=== PATIENT | female | born 1950 | race Caucasian/White ===

== ENCOUNTER → 2017-02-25 | Outpatient (CLI) | payer OTHER ==
[~2017-02-25] MED LIST: AMLODIPINE BESY10 MG; HCTZ/TRIAMTEREN1 TA1 PO; HYDROCHLOROTHIA25 MG; HYDROCHLOROTHIA25 MG PO; INDOCIN25 MG PO; KEFLEX500 MG PO; LOSARTAN POTASS25 M1; LOSARTAN POTASS25 M1 PO; LOVASTATIN20 MG; MOTRIN800 MG PO; NORFLEX100 MG PO; NORVASC2.5 MG PO; PAROXETINE40 MG; PAXIL40 MG PO; PERCOCET 325 MG1 TA2 PO; POTASSIUM CHLORIDE; POTASSIUM20 MEQ PO; PREDNICOT20 MG PO; TRAMADOL HCL; VENTOLIN INHALER; VICODIN ES 7501 TAB PO; ZITHROMAX Z PA250 MG PO
== END | disposition home or self-care (01) ==
LOC: RAD 16:09
DX: R91.1 Solitary pulmonary nodule (principal); R04.2 Hemoptysis

== ENCOUNTER → 2017-03-04 | Outpatient (CLI) | payer OTHER ==
[2017-03-04 13:48] LABS: EST GLOM FILT AFRICAN AMERICAN > 60 ml/min
== END | disposition home or self-care (01) ==
LOC: LAB 13:22 → CT 14:00
PROVIDERS: Nurse Practitioner Family
DX: R91.8 Other nonspecific abnormal finding of lung field (principal); J44.9 Chronic obstructive pulmonary disease, unspecified

== ENCOUNTER → 2017-03-24 | Outpatient (CLI) | payer OTHER ==
[2017-03-25 08:13] LABS: RHEUMATOID ARTHRITIS FACTOR <10.0 IU/mL (0.0-13.9)
[2017-03-25 09:07] LABS: IMMUNOGLOBULIN IgE 002170 135 IU/mL (0-100)
[2017-03-25 16:10] LABS: ANGIOTENSIN-CONVERTING ENZYME 28 U/L (14-82)
[2017-03-26 00:08] LABS: IGG SUBCLASS 1 1060 mg/dL (248-810); IGG SUBCLASS 2 320 mg/dL (130-555); IGG SUBCLASS 3 61 mg/dL (15-102); IGG SUBCLASS 4 27 mg/dL (2-96)
[2017-03-26 22:04] LABS: BLASTOMYCES ANTIBODY 164293 Negative (Neg:<1:1)
== END | disposition home or self-care (01) ==
LOC: LAB 14:15
PROVIDERS: Internal Medicine Critical Care Medicine
DX: J84.9 Interstitial pulmonary disease, unspecified (principal)

== ENCOUNTER → 2017-03-24 | Day surgery (SDC) | payer OTHER ==
[~2017-03-24] VITALS: Ht 154.9 cm; Wt 88.5 kg
--- NOTE | ~2017-03-24 | PROC NOTE ---
[place], [place] PROCEDURE NOTE [id number] UN[facility] #: [id number] ROOM: DOCTOR: JOE ZEPEDA MD,PK BIRTHDATE: [birth year] DOS: 03/24/2017 PROCEDURE: Bronchoscopy. PREOPERATIVE DIAGNOSIS: Cavitary mass lesion of the left upper lobe. POSTOPERATIVE DIAGNOSIS: Cavitary mass lesion of the left upper lobe. PROCEDURE DESCRIPTION: Informed consent obtained from the patient. She was brought to the OR and placed in the supine position. Conscious sedation administered by the Anesthesia Department. After achieving appropriate sedation, airway introduced into the mouth. Bronchoscope advanced into the airway, into laryngeal area. Epiglottis and vocal cords were seen. Vocal cords were moving symmetrically with movements. Bronchoscope was advanced into the tracheal lumen. The tracheal lumen was seen. Minimal secretion present in the tracheal lumen. Right upper, right middle, right lower, left upper, lingular lower lobe bronchi were all examined. There were no endobronchial obstructive lesions noted. Transbronchial biopsy was done confirming the left upper lobe mass with the help of fluoroscopy without any complication. The procedure was tolerated by the patient without any difficulty. Postoperative findings were discussed with the patient briefly in the recovery room once the patient noted some improvement to the effects of sedation. The findings were also discussed with the patient's daughter as well. She will be seen in the office for followup visit to determine the etiology of the problem and to discuss the further findings of the path report and cultures. PK DIAZ MD CM:PROCNOTE:PROCEDURE NOTE [id number] PK ZEPEDA MD
[2017-03-24 08:48] VITALS: BP 130/70
[2017-03-24 09:20] VITALS: BP 122/65
[2017-03-24 09:31] VITALS: BP 98/71
[2017-03-24 09:50] VITALS: BP 126/76
[2017-03-25 16:10] LABS: ACID FAST SPEC PROCESSING Concentration (.)
== END | disposition home or self-care (01) ==
LOC: SDC 03-20 08:45
PROVIDERS: Internal Medicine Critical Care Medicine
DX: C34.12 Malignant neoplasm of upper lobe, left bronchus or lung (principal); J45.909 Unspecified asthma, uncomplicated; J44.9 Chronic obstructive pulmonary disease, unspecified; Z98.51 Tubal ligation status; Z90.710 Acquired absence of both cervix and uterus; Z98.890 Other specified postprocedural states; Z87.891 Personal history of nicotine dependence; E66.9 Obesity, unspecified; E78.00 Pure hypercholesterolemia, unspecified; I10 Essential (primary) hypertension; F32.9 Major depressive disorder, single episode, unspecified; Z79.899 Other long term (current) drug therapy

== ENCOUNTER → 2017-05-27 | Outpatient (CLI) | payer OTHER | END | disposition home or self-care (01) | LOC: RAD 12:00 | DX: Z01.818 Encounter for other preprocedural examination (principal); C34.12 Malignant neoplasm of upper lobe, left bronchus or lung ==

== ENCOUNTER 2018-10-09 15:05 | Inpatient (IN) | payer OTHER ==
[~2018-10-09] VITALS: Ht 154.9 cm; Wt 93.2 kg
--- NOTE | ~2018-10-09 | CON ---
[place], [place] REPORT OF CONSULTATION NAME: ELVIS REID UNIT #: [id number] ROOM: [facility] DOCTOR: JOE ZEPEDA MD,PK BIRTHDATE: [birth year] DOS: The patient was asked for consultation in this hospitalization, but transferred to another facility prior to my assessment. PK DIAZ MD CM:CONSTR:REPORT OF CONSULTATION 1155 10/25/18 2347 interface
--- NOTE | ~2018-10-09 | CON ---
[place], [place] REPORT OF CONSULTATION NAME: ELVIS REID UNIT #: [id number] ROOM: 405 DOCTOR: BREANNA HOLLIDAY MD BIRTHDATE: [birth year] DOS: 10/11/2018 HISTORY OF PRESENT ILLNESS: A 68-year-old patient who presented with chief complaint of abdominal pain, recurrent nausea and vomiting. She had to be process to Emergency Room because of the symptomatology was presented and NG tube was tried in right and left naris was unable to get the tube in. White blood was 11.8. Differential normal. Comprehensive metabolic panel, electrolyte balance except at that time 3.2, potassium was replaced. CT scan of the abdomen was done. Suspect enteritis of the distal ileum. CT scan repeat was recommended. Small amount of fluid in the abdomen, hepatic steatosis, gallbladder sludge, diverticulosis without diverticulitis. CBC differential corrected INR was 1.1. Basic metabolic panel was reassessed. Potassium periodically replaced. Urine less than 100,000 bacteria. H and H remained stable. PAST MEDICAL HISTORY: Associated with obesity, COPD, recently has stopped smoking, chronic renal insufficiency, anxiety, diverticulosis, and lung ca. PAST SURGICAL HISTORY: Left lobectomy, vaginal hysterectomy, and previous back surgery disk. SOCIAL HISTORY: Smoker in the recent past and marijuana use. FAMILY HISTORY: Noncontributory. ALLERGIES: SULFA, QUINOLONES AND CIPROFLOXACIN. MEDICATIONS: List has been reviewed. REVIEW OF SYSTEMS: HEENT: Denies double vision, blurred vision. RESPIRATORY: Admits to shortness of breath. CARDIOVASCULAR: Denies chest pain. DIGESTIVE SYSTEM: Recurrent nausea, vomiting. She had a large BM and liquid stool today. PHYSICAL EXAMINATION: VITAL SIGNS: Stable. HEENT: Head normocephalic, nontraumatic. Mouth and buccal mucosa benign. NECK: Supple, no thyromegaly, no cervical lymphadenopathy. CHEST: Symmetric anatomy, decreased air entry, COPD pattern. HEART: Normal sinus rhythm, no gallop, no murmur. ABDOMEN: Obese, large bowel sounds present. They are hyperdynamic, tympanitic bowel sounds signifying at least partial obstruction. Rebound tenderness was noticed. EXTREMITIES: No cyanosis, no pedal edema. NEUROLOGIC: Fully alert, oriented to time, place, person. IMPRESSION: Acute abdomen in the presentation, ruling out obstruction of variety of etiologies obesity, steatosis of the liver. [place], [place] REPORT OF CONSULTATION NAME: ELVIS REID UNIT #: [id number] ROOM: 405 DOCTOR: MIYA MUNOZ,BREANNA BIRTHDATE: [birth year] OTHER ADJUNCTIVE DIAGNOSES: As outlined above in past medical and surgical history. PLAN AND DISCUSSION: Strongly recommend to proceed with CT scan of the abdomen with contrast to define the level of obstruction and if so, she needs further intervention to release the pathology. Work in progress. The patient cannot tolerate clear liquid. I have recommended for her to stay n.p.o. until CT scan done in the next several hours, hopefully. BREANNA HOLLIDAY MD CM:CONSTR:REPORT OF CONSULTATION 1944 10/12/18 0412 interface
--- NOTE | ~2018-10-09 | O ---
[place], [place] OPERATIVE NOTE NAME: ELVIS REID [facility] #: [id number] UNIT #: [id number] ROOM: [facility]- DOCTOR: TOY [facility] BIRTHDATE: [birth year] DOS: 10/15/2018 GASTROENDOSCOPIC REPORT HISTORY OF PRESENT ILLNESS: The patient has presented with obstructive symptomatology, has been several days in the hospital with abdominal severe pain. NG tube has been placed for the past few days and continues with her abdominal pain, on antibiotics. CT scan suggestive of bowel obstruction and I have been asked to perform a colonoscopy on the patient and endoscopic evaluation due to the concern possible about distal small-bowel obstruction. The CT scan without contrast was obtained and after administration of oral contrast, there is small bowel thickening. Findings again suggestive of enteritis. Given persistent small bowel dilation to the level of the ileum, partial intermittent distal small bowel is obstruction is suspected, recommend close clinical reevaluation. Gallbladder distention and sludge. PROCEDURE: Today's is panendoscopy and colonoscopy. PREMEDICATION: Propofol and intubation. SCOPE: Olympus forward-viewing gastroscope Q10 video. REPORT: After putting the patient in left lateral position and application of lubricant to the scope, the scope was introduced. Thereafter, under direct visualization, advanced through the length of esophagus without difficulty. Distal esophageal ulcers secondary to reflux was noticed. Gastric pouch expresses multiple linear ulcerations. These are most likely induced, not only because of bile reflux gastritis seen addition to the presence of NG tube in place. Biopsy from margin of 1 was obtained. Photographic series obtained. Duodenal bulb and second part and third part intubated. There is leaking of the bilious matter at the third part of the duodenum signifying the bile cannot easily passed through and there must be obstructive phenomenon beyond this level. At this stage, scope was withdrawn. The patient extubated, tolerated the procedure well. IMPRESSION: Distal esophageal ulcer secondary to reflux, multiple linear ulcerations in gastric pouch. In the duodenum, suspecting distal small-bowel obstruction due to the large volume of bilious matter in the duodenum. PLAN AND DISCUSSION: I am going to proceed with colonoscopy. GASTROENDOSCOPIC REPORT PROCEDURE: Today's procedure part of investigation is colonoscopy plus terminal ileum biopsy. PREMEDICATION: Propofol. SCOPE: Olympus forward-viewing colonoscope 10L video. [place], [place] OPERATIVE NOTE NAME: ELVIS REID UNIT #: [id number] ROOM: [facility] DOCTOR: MIYA MUNOZ,BREANNA BIRTHDATE: [birth year] REPORT: After putting the patient in left lateral position and application of lubricant to rectal pouch, scope was introduced. Thereafter, under direct visualization, I advanced through the length of colon to the level of terminal ileum. Ileocecal valve is prolapsed as big as moderate size pecan and quite edematous it is difficult to negotiate the colonoscope into the diameter existing. Therefore, partially was introduced and biopsy was obtained. Tortuosity of sigmoid colon was noticed, multi-colonic polyp was identified. Neither one was removed due to the concentration to the other issues, i.e., obstruction. The patient air was suctioned out, extubated, tolerated the procedure well. IMPRESSION: Diverticulosis, multiple colonic polyps that was not removed, stenotic ileocecal valve, status post biopsy in addition to edema, suspecting obstruction or pathology at this level. PLAN AND DISCUSSION: This patient has been awaiting around for observation and weekend is arriving and I am not comfortable to leave her status quo, may need to be transferred out for exploratory surgery. Thank you very much indeed. BREANNA HOLLIDAY MD CM:OPRECORD:OPERATIVE NOTE [id number] BREANNA HOLLIDAY MD 10/27/18 0739 interface
--- NOTE | ~2018-10-09 | PR ---
[place], [place] PROGRESS NOTE NAME: ELVIS REID [facility] #: [id number] UNIT #: [id number] ROOM: 405 DOCTOR: MIYA MUNOZTOYRIO RICOJUAN CARLOS BIRTHDATE: [birth year] DOS: 10/13/2018 HISTORY OF PRESENT ILLNESS: The patient has presented with abdominal pain and symptomatology of bowel obstruction. She has had multiple CT scans done, the latest one being a repeat of CT with contrast and essentially same as 10/09/2018 and some bowel thickening and possibility of small bowel dilation, particularly towards the ileum, possibility of partial obstruction, gallbladder distention, sludge, and tiny nephrolithiasis, has been commented about, but no definitive obstruction noticed. However, the patient is clinically having small-bowel obstruction, especially 2 days ago she was having rebound tenderness and acute abdomen on presentation. Today less rebound effect; however, bowel sounds are high pitched and hyperactive and as if the process of hyperactivity secondary to enteritis. The etiology of which has been not clear yet in the presence of negative ova and parasite and in the presence of stool cultures been nonremarkable. CBC today, white blood cell dropped to 5.7 after she received one dose of Rocephin and it was 16 yesterday and she has been hypokalemic at 3.3 today after she has received multiple doses K-riders yesterday. We are going to supplement again with 20 mg K-riders x 2. She has been keeping her NG tube, a little bit uncomfortable; however, since it has helped her nausea, vomiting, intermittent suction continues through the NG tube. REVIEW OF SYSTEMS: HEENT: Denies double vision, blurred vision. RESPIRATORY: Denies acute shortness of breath. CARDIOVASCULAR: Denies acute chest pain. DIGESTIVE SYSTEM: The patient continues with abdominal pain and nausea. An NG tube support. PHYSICAL EXAMINATION: VITAL SIGNS: Appear to be stable. HEENT: Normocephalic, nontraumatic NG tube in place, right naris and Mouth and buccal mucosa benign. NECK: Supple, no thyromegaly, no cervical lymphadenopathy. CHEST: Symmetric anatomy, decreased air entry in general. No wheeze, no rhonchi. HEART: Normal sinus rhythm, no gallop, no murmur. ABDOMEN: Obese, large, soft. No hepato-organomegaly. Bowel sounds present, still cleaner on tapping. However, much less. Bowel sounds hyperactive. EXTREMITIES: No cyanosis, no pedal edema. NEUROLOGIC: Alert, oriented to time, place, and person. IMPRESSION: Abdominal pain and distention, etiology of enteritis on radiologic finding has not been explained yet. However, she was having leukocytosis. She received one dose of Rocephin and white blood cell dropped to 5+ and NG tube in place for possible obstruction that I am comfortable, is not resolved yet. I will keep this patient on metronidazole 500 mg q. 8 hours due to the chronicity of symptomatology and persistence of unexplained etiology of bowel partial obstruction. Other adjunctive diagnoses, morbid obesity, chronic obstructive pulmonary disease, renal insufficiency, diverticulosis, history of systemic hypertension, hyperlipidemia. All have been recognized. Workup in progress. [place], [place] PROGRESS NOTE NAME: ELVIS REID UNIT #: [id number] ROOM: 405 DOCTOR: BREANNA HOLLIDAY MD BIRTHDATE: [birth year] She claims continuing with hypokalemia management. BREANNA HOLLIDAY MD CM:CANDELARIO 1645 1 BREANNA HOLLIDAY MD 10/14/18132 interface
[~2018-10-09 15:05] MED LIST changes: -AMLODIPINE BESY10 MG; +AMLODIPINE BESY10 MG PO; -LOVASTATIN20 MG; +LOVASTATIN20 MG PO; +PAXIL40 M1 PO; -PAXIL40 MG PO; +POTASSIUM CHLO20 ME3 PO; -POTASSIUM20 MEQ PO; +PROAIR HFA8.5 GM INH; +QVAR REDIHALE10.6 G1 INH; +XANAX0.25 MG PO
[2018-10-09 15:08] VITALS: BP 133/89
--- NOTE | 2018-10-09 15:12 | NUR ---
DIFFUSE ABDOMEN BURNING PAIN AND CRAMPING DESCRIBED WITH NAUSEA, NO EMESIS. NO OBJECTIVE DISTRESS AT THIS TIME. INTERMITTENT RECTAL BLEEDING WITH HX HEMORRHOIDS, PER PT. SKIN IS PINK, WARM AND DRY. FAMILTY AT BEDSIDE.
[2018-10-09 15:44] LABS: BASO # 0.1 10*3/uL (0.0-0.1); BASO % 0.5 % (0.0-1.0); EOS # 0.2 10*3/uL (0.0-0.4); EOS % 1.3 % (1.0-4.0); HEMATOCRIT 43.6 % (37.0-47.0); HEMOGLOBIN 14.4 g/dl (12.0-16.0); LYMPH # 2.3 10*3/uL (1.3-4.4); LYMPH % 19.2 % (27.0-41.0); MEAN CELL VOLUME 85.5 fl (81.0-99.0); MEAN CORPUSCULAR HGB 28.2 pg (27.0-31.0); MEAN PLATELET VOLUME 10.5 fl (9.6-12.3); MONO # 0.9 10*3/uL (0.1-1.0); MONO % 7.4 % (3.0-9.0); NEUT # 8.4 10*3/uL (2.3-7.9); NEUT % 71.3 % (47.0-73.0); PLATELET COUNT AUTOMATED 390 10*3/uL (130-400); RED CELL DISTRI WIDTH 13.2 % (0-14.5); WHITE BLOOD COUNT 11.8 10*3/uL (4.8-10.8)
--- NOTE | 2018-10-09 15:57 | NUR ---
WOUNDS: THERE ARE DOZENS OF VERY SMALL HEALED LESIONS ACROSS ENTIRE BODY WHICH PT REPORTS ARE FROM AN OLD BED-BUG INFESTATION. THESE SITES ARE WELL HEALED BUT WITH GRANULATION TISSUE PRESENT AND REQUIRE NO TREATMENT AND WERE NOT PHOTOGRAPHED.
[2018-10-09 15:59] LABS: ALBUMIN 3.6 gm/dl (3.1-4.5); CREATININE 1.12 mg/dL (0.55-1.02); POTASSIUM 3.2 mmol/L (3.5-5.1)
[2018-10-09 16:05] LABS: BILIRUBIN 1+ (NEGATIVE); BLOOD NEGATIVE (NEGATIVE); CLARITY SL CLOUDY (CLEAR); COLOR YELLOW (YELLOW); GLUCOSE NEGATIVE (NEGATIVE); KETONE TRACE (NEGATIVE); LEUKO ESTERASE NEGATIVE (NEGATIVE); NITRITE NEGATIVE (NEGATIVE); SPECIFIC GRAVITY >= 1.030 (1.005-1.030); UROBILINOGEN 0.2 E.U./dl (0.2-1.0)
[2018-10-09 16:20] LABS: BACTERIA 2+; MUCOUS 2+
[2018-10-09 17:00] VITALS: BP 134/80
--- NOTE | 2018-10-09 17:30 | NUR ---
ABD PAIN SLIGHTLY IMPROVED WITH MORPHINE DOSING
--- NOTE | 2018-10-09 17:51 | NUR ---
PT UNABLE TO TOLERATE A 16F NG TUBE IN EITHER NARE. REFUSES FURTHER ATTEMPTS. PT HAS BEEN MAINTAINED AN NPO FROM ARRIVAL HERE EXCEPT FOR 5-10 SMALL ICE CHIPS.
[2018-10-09 18:15] VITALS: BP 144/68
--- NOTE | 2018-10-09 18:18 | NUR ---
AWAITING PT'S ROOM TO BE CLEANED. ROOM ASSIGNED 405/1
[2018-10-09] MEDS ORDERED: VISTARIL25 MG PO (18:50)
--- NOTE | 2018-10-09 18:55 | NUR ---
Time: 1854 A 68 year old female admitted to 4E under services of JULIA ELLIS DO. Pt. arrived via stretcher from ER. Chief complaint: abmdominal pain, nausea and vomiting. pt has small scabbed areas all over body, she states from previous bed bug bites, per her and her daughter they no longer have bed bugs at home. no open areas noted that need treatment GLADYS ANGUIANO
[2018-10-09 19:04] VITALS: BP 141/87
[2018-10-09 20:00] VITALS: BP 130/99
--- NOTE | 2018-10-09 20:18 | NUR ---
DR HOLLIDAY MADE AWARE OF NEW CONSULT ORDER.
--- NOTE | 2018-10-09 20:29 | NUR ---
I SPOKE WITH DR TOUSSAINT TO NOTIFY HIM OF CONSULT. HE STATED HE WAS ALREADY AWARE OF THE PT DUE TO ER STAFF NOTIFYING HIM EARLIER TODAY.
[2018-10-10] VITALS: BP 136/81
--- NOTE | 2018-10-10 04:45 | NUR ---
24 HR chart check completed.
--- NOTE | 2018-10-10 05:02 | NUR ---
Morphine given per patient request for c/o upper quardrant abdominal pain that is rated 6-8/10. Will monitor.
[2018-10-10 06:00] LABS: BASO % 0.5 % (0.0-1.0); EOS # 0.2 10*3/uL (0.0-0.4); EOS % 2.2 % (1.0-4.0); HEMOGLOBIN 12.5 g/dl (12.0-16.0); LYMPH % 22.8 % (27.0-41.0); MEAN CORPUSCULAR HGB CONC 31.3 g/dl (33.0-37.0); MEAN PLATELET VOLUME 10.6 fl (9.6-12.3); MONO # 0.8 10*3/uL (0.1-1.0); MONO % 8.7 % (3.0-9.0); NEUT # 5.7 10*3/uL (2.3-7.9); NEUT % 65.6 % (47.0-73.0); PLATELET COUNT AUTOMATED 292 10*3/uL (130-400); RED BLOOD COUNT 4.47 10*6/uL (4.10-5.10); RED CELL DISTRI WIDTH 13.5 % (0-14.5); WHITE BLOOD COUNT 8.6 10*3/uL (4.8-10.8)
[2018-10-10 06:04] LABS: MEAN CELL VOLUME 89.5 fl (81.0-99.0)
[2018-10-10 06:16] LABS: ACT PARTIAL THROMBO TIME 24.8 SECONDS (20.8-31.5); INTERNATIONAL NORM RATIO 1.1 (2.0-3.5)
[2018-10-10 06:31] LABS: BUN 14 mg/dl (7-24); CHLORIDE 105 mmol/L (98-107); CHOLESTEROL 175 mg/dL (<200); CREATININE 0.97 mg/dL (0.55-1.02); FREE T4 1.06 ng/dl (0.76-1.46); HDL CHOLESTEROL 38 mg/dl (40-60); LDL CHOLESTEROL 112 mg/dL (9-159); PHOSPHOROUS 3.1 mg/dL (2.5-4.9); POTASSIUM 3.4 mmol/L (3.5-5.1); SODIUM 142 mmol/L (136-145); TRIGLYCERIDES 126 mg/dl (<150); VLDL CHOLESTEROL 25 mg/dL (6-40)
[2018-10-10 07:52] LABS: VITAMIN D, 25-HYDROXY 15.2 ng/mL (30-100)
[2018-10-10 08:00] VITALS: BP 121/59
--- NOTE | 2018-10-10 08:17 | NUR ---
DR TOUSSAINT IN TO SEE PT.
--- NOTE | 2018-10-10 10:19 | NUR ---
DR HOLLIDAY NOTIFIED OF H+H THIS AM.
[2018-10-10 12:00] VITALS: BP 148/66; BP 151/61
--- NOTE | 2018-10-10 13:44 | NUR ---
PT MEDICATED WITH ZOFRAN AND NAUSEA AT HER REQUEST. PT STATED SHE WAS HAVING A "LITTLE PINGE" OF ABD PAIN AND WANTED TO TAKE THE PAIN MED BEFORE IT GOT WORSE AND STATED THAT SHE WANTED THE ZOFRAN BECAUSE SHE DIDNT WANT TO GET ANY NAUSEA AFTER EATING HER CLEAR LIQUIDS.
[2018-10-10 16:00] VITALS: BP 164/78
--- NOTE | 2018-10-10 16:00 | NUR ---
PT MEDICATED WITH BENADRYL AT THIS TIME PER ORDER FOR COMPLAINTS OF ITCHINESS. WILL MONITOR FOR EFFECTIVENESS.
[2018-10-10 20:00] VITALS: BP 156/66
--- NOTE | 2018-10-10 20:00 | NUR ---
PT SLEEPING IN BED. CALL LIGHT WITHIN REACH, BED LOW.
--- NOTE | 2018-10-10 23:45 | NUR ---
Noticed patient having multiple periods of apnea, applied pulse oximeter. Pt spo2 75-82% on room air. Applied Nc to patient at 6L, spo2 97%, titrated to 3L at 94% spo2.
[2018-10-11] VITALS: BP 143/67
[2018-10-11 06:38] LABS: BASO % 0.3 % (0.0-1.0); EOS # 0.1 10*3/uL (0.0-0.4); HEMATOCRIT 36.8 % (37.0-47.0); HEMOGLOBIN 11.7 g/dl (12.0-16.0); LYMPH # 1.4 10*3/uL (1.3-4.4); LYMPH % 21.4 % (27.0-41.0); MEAN CELL VOLUME 89.1 fl (81.0-99.0); MEAN CORPUSCULAR HGB 28.3 pg (27.0-31.0); MEAN CORPUSCULAR HGB CONC 31.8 g/dl (33.0-37.0); MEAN PLATELET VOLUME 10.9 fl (9.6-12.3); MONO # 0.7 10*3/uL (0.1-1.0); MONO % 11.4 % (3.0-9.0); NEUT # 4.1 10*3/uL (2.3-7.9); NEUT % 64.6 % (47.0-73.0); PLATELET COUNT AUTOMATED 265 10*3/uL (130-400); RED BLOOD COUNT 4.13 10*6/uL (4.10-5.10); RED CELL DISTRI WIDTH 13.2 % (0-14.5); WHITE BLOOD COUNT 6.4 10*3/uL (4.8-10.8)
[2018-10-11 07:02] LABS: BUN 10 mg/dl (7-24); CHLORIDE 105 mmol/L (98-107); POTASSIUM 3.4 mmol/L (3.5-5.1); SODIUM 142 mmol/L (136-145)
[2018-10-11 07:04] LABS: CREATININE 0.73 mg/dL (0.55-1.02)
--- NOTE | 2018-10-11 09:00 | NUR ---
[place] in to talk to patient. Patient states lives at home with daughter. There are few steps in the home. Physician: john smith Pharmacy: [facility] health services: none Patient's level of ADLs: INDEPENDENT Patient has working utilities: all working DME: none Follow-up physician's appointment after d/c: will be made by hospitalist nurse director upon discharge Does patient want to access PORTAL?: no Discharge plan discussed with patient patient lives at home with her daughter, she states she is independent in adls and ambulation, she stated she would be going home when able. patient states her daughter takes her wherever she needs to go. discussed with her VNA and she declines any home services at this time. MICHAEL LANGE
--- NOTE | 2018-10-11 09:45 | NUR ---
Patient was medicated with Zofran for c/o N/V and Morphine was given for c/o abdominal pain. Will monitor.
--- NOTE | 2018-10-11 10:20 | NUR ---
Zofran and Morphine effective. Patient satisfied.
[2018-10-11 12:00] VITALS: BP 135/95
--- NOTE | 2018-10-11 14:00 | NUR ---
PATIENT MEDICATED WITH MORPHINE AT THIS TIME PER DOCTORS ORDER. PATIENT COMPLAINING OF ABDOMINAL PAIN. PATIENT RATES HER PAIN 10/10.
--- NOTE | 2018-10-11 14:02 | NUR ---
Per Dr. Coffey. Give Zofran for vomitting even though it is not due yet.
--- NOTE | 2018-10-11 14:10 | NUR ---
Contacted Dr. Coffey because patient was showing sign of severe abdominal pain and had blood tinged emesis. Physician immediately followed up at patients bed side. See new orders.
--- NOTE | 2018-10-11 15:00 | NUR ---
Morhine and Zofran effective. Patient asleep with respirations >12.
[2018-10-11 16:00] VITALS: BP 135/73
--- NOTE | 2018-10-11 18:17 | NUR ---
Zofran given per patient request for c/o nausea. Will monitor.
--- NOTE | 2018-10-11 18:20 | NUR ---
Zofran given per patient request for c/o nausea w/out vomitting.
--- NOTE | 2018-10-11 18:31 | NUR ---
Morphine given per patient request for RUQ pain that patient rates 10/10. Will monitor. Patient states the pain increased right after a large soft bowel movement. She said it was cloudy like milk and yellow. Will monitor.
--- NOTE | 2018-10-11 19:00 | NUR ---
Zofran not effective. Patient had basin filled with tea colored emesis and c/o RUQ pain. This information was shared during nurse to nurse hand off.
--- NOTE | 2018-10-11 19:30 | NUR ---
PT AWAKE AND COMPLAINING OF SEVERE ABDOMINAL PAIN. DR HOLLIDAY IN TO SEE HER. DR HOLLIDAY REQUESTS THAT WE DO THE CT OF THE ABDOMEN AND PELVIS TONIGHT INSTEAD OF THE SCHEDULED TIME OF TOMORROW MORNING AT 0700 FOLLOWED BY THE INSERTION OF AN NG TUBE. CT SCAN RESCHEDULED FOR TONIGHT. PT ADMINISTERED ORAL CONTRAST. CALL LIGHT WITHIN REACH. WILL CONTINUE TO MONITOR.
[2018-10-11 20:00] VITALS: BP 124/99
--- NOTE | 2018-10-11 23:15 | NUR ---
16 FR NG tube inserted and secured without difficulty via RIGHT nares. Patient tolerated procedure well. Connected to low intermittent wall suction. Placement verified w/air bolus. Suctioning thin agrawal liquid. will monitor output. MANPREET RIGGINS
--- NOTE | 2018-10-11 23:57 | NUR ---
Dr. Gooden notified of ng tube placement per Dr. Joyce.
[2018-10-12] VITALS: BP 115/63
--- NOTE | 2018-10-12 02:00 | NUR ---
PT RESTING QUIETLY IN BED AT THIS TIME W/NG TO LIWS. NO S/S 0F DISTRESS NOTED.
--- NOTE | 2018-10-12 04:00 | NUR ---
PT RESTING QUIETLY IN BED AT THIS TIME. NO S/S OF DISTRESS OR N/V NOTED. NG TO LIWS CONTINUES W/OUT ANY INCIDENT. CALL LIGHT IN REACH.
--- NOTE | 2018-10-12 06:03 | NUR ---
PT ADMINISTERED PRN MORPHINE AND ZOFRAN. IMMEDIATELY FOLLOWING THE ADMINISTRATION OF MORPHINE PT HAD A LARGE EMESIS. WILL CONTINUE TO MONITOR.
[2018-10-12 06:35] LABS: BASO % 0.2 % (0.0-1.0); EOS % 0.1 % (1.0-4.0); HEMATOCRIT 38.2 % (37.0-47.0); HEMOGLOBIN 12.5 g/dl (12.0-16.0); LYMPH # 0.8 10*3/uL (1.3-4.4); LYMPH % 4.9 % (27.0-41.0); MEAN CORPUSCULAR HGB 28.5 pg (27.0-31.0); MEAN CORPUSCULAR HGB CONC 32.7 g/dl (33.0-37.0); MEAN PLATELET VOLUME 10.7 fl (9.6-12.3); MONO # 0.9 10*3/uL (0.1-1.0); MONO % 5.3 % (3.0-9.0); NEUT # 14.7 10*3/uL (2.3-7.9); NEUT % 88.9 % (47.0-73.0); PLATELET COUNT AUTOMATED 260 10*3/uL (130-400); RED BLOOD COUNT 4.39 10*6/uL (4.10-5.10); RED CELL DISTRI WIDTH 13.4 % (0-14.5); WHITE BLOOD COUNT 16.5 10*3/uL (4.8-10.8)
[2018-10-12 06:37] LABS: BUN 13 mg/dl (7-24); CHLORIDE 102 mmol/L (98-107); CREATININE 1.09 mg/dL (0.55-1.02); POTASSIUM 3.1 mmol/L (3.5-5.1); SODIUM 139 mmol/L (136-145)
[2018-10-12 08:00] VITALS: BP 122/66
--- NOTE | 2018-10-12 08:15 | NUR ---
NORMAL SALINE INCREASED TO 125/HR PER ORDER.
--- NOTE | 2018-10-12 09:00 | NUR ---
case management visits with patient, patient states she will be going home when able and denies any home needs
--- NOTE | 2018-10-12 10:10 | NUR ---
DR TOUSSAINT CALLED FOR UPDATE ON PT- WILL BE IN TO SEE HER TODAY.
--- NOTE | 2018-10-12 11:25 | NUR ---
DR TOUSSAINT IN TO SEE PATIENT.
--- NOTE | 2018-10-12 11:26 | NUR ---
PHENERGAN ADMINISTERED PRESCRIBED FOR NAUSEA/VOMITING. WILL MONITOR FOR EFFECTIVENESS.
--- NOTE | 2018-10-12 12:26 | NUR ---
PATIENT RESTING COMFORTABLY AT THIS TIME WITH EYES CLOSED. WILL CONTINUE TO MONITOR FOR NAUSEA/VOMITING.
--- NOTE | 2018-10-12 14:07 | NUR ---
1120 NG SUCTION DRAINING GREEN, CANISTER FULL AND CHANGED. 1200 CC.
[2018-10-12 16:00] VITALS: BP 130/81
--- NOTE | 2018-10-12 16:33 | NUR ---
PHYSICAL THERAPY PAtient too ill for PT this date. will attempt at a later date. Thank you for this referral. Alyssa Frias,PT
--- NOTE | 2018-10-12 16:55 | NUR ---
PATIENT REQUESTING MEDICATION FOR NAUSEA AND VOMITING. PHENERGAN ADMINISTERED PRESCRIBED. WILL MONITOR FOR EFFECTIVENESS.
--- NOTE | 2018-10-12 17:55 | NUR ---
PATIENT RESTING WITH EYES CLOSED AT THIS TIME. STATES THAT NAUSEA IS BETTER AT THIS TIME. WILL MONITOR.
[2018-10-12 20:00] VITALS: BP 152/77
--- NOTE | 2018-10-12 23:45 | NUR ---
PT C/O NAUSEA. PRN MEDS GIVEN. SEE EMAR FOR FURTHER DOCUMENTATION.
[2018-10-13] VITALS: BP 145/60
[2018-10-13 07:08] LABS: BASO % 0.3 % (0.0-1.0); EOS # 0.1 10*3/uL (0.0-0.4); EOS % 2.4 % (1.0-4.0); HEMATOCRIT 37.8 % (37.0-47.0); HEMOGLOBIN 12.1 g/dl (12.0-16.0); LYMPH # 1.3 10*3/uL (1.3-4.4); LYMPH % 22.6 % (27.0-41.0); MEAN CELL VOLUME 87.1 fl (81.0-99.0); MEAN CORPUSCULAR HGB 27.9 pg (27.0-31.0); MEAN PLATELET VOLUME 11.4 fl (9.6-12.3); MONO # 0.9 10*3/uL (0.1-1.0); NEUT # 3.4 10*3/uL (2.3-7.9); NEUT % 59.5 % (47.0-73.0); PLATELET COUNT AUTOMATED 262 10*3/uL (130-400); RED BLOOD COUNT 4.34 10*6/uL (4.10-5.10); RED CELL DISTRI WIDTH 13.4 % (0-14.5); WHITE BLOOD COUNT 5.7 10*3/uL (4.8-10.8)
[2018-10-13 07:34] LABS: BUN 20 mg/dl (7-24); CHLORIDE 102 mmol/L (98-107); CREATININE 0.86 mg/dL (0.55-1.02); POTASSIUM 3.3 mmol/L (3.5-5.1); SODIUM 142 mmol/L (136-145)
[2018-10-13 08:00] VITALS: BP 132/74
--- NOTE | 2018-10-13 08:00 | NUR ---
NG TUBE INTACT IN RIGHT NARES AND DRAINING MODERATE AMOUNT OF PALE GREEN SECRETIONS, HYPOACTIVE PERISTALSIS NOTED IN ABD, RIGHT SIDE HAS BETTER BOWEL SOUNDS THAN LEFT, PT STATES THAT SHE IS HAVING STOOLS, PT IS ALLOWED ICE CHIPS, DENIES PAIN AT PRESENT ASMITA MEYERS
--- NOTE | 2018-10-13 09:07 | NUR ---
PT IS COMFORTABLE IS NPO AND WE ARE HOLDING MEDS PER ORDER ASMITA BLANK.RCC
--- NOTE | 2018-10-13 11:16 | NUR ---
case management visits with patient, no change in discharge plan at this time, patient will be going home with daughter and declines any VNA
[2018-10-13 12:00] VITALS: BP 152/77
--- NOTE | 2018-10-13 12:31 | NUR ---
REMOVED HEART MONITOR DUE TO IT BEING DISCONTINUED. BED LEFT IN LOWEST POSITION. CALL LIGHT WITHIN REACH. NO COMPLAINTS AT THIS TIME. FELICIA ANGUIANO. ROSAMARIA.[facility]
[2018-10-13 16:00] VITALS: BP 152/74
--- NOTE | 2018-10-13 16:22 | NUR ---
Occupational Therapy screen completed this date. OT referral received, however patient reports she is independent in all ADLs, ambulation w cane. She c/o abdominal pain and lasix causing her to go frequently to the bathroom. No OT indicated at this time. Discharge home when discharge. Thank you. Hallie Lopes OTR/Gwendolyn
--- NOTE | 2018-10-13 16:42 | NUR ---
IN TO SEE PATIENT REGARDING PLAN OF CARE. NEW ORDERS RECEIVED.
--- NOTE | 2018-10-13 16:59 | NUR ---
PHYSICAL THERAPY PAtient too ill for PT this date. Requests check on status tomorrow. Thank you for this referral. Alyssa Frias,PT
[2018-10-13 20:00] VITALS: BP 148/62
[2018-10-14] VITALS: BP 141/59
--- NOTE | 2018-10-14 01:30 | NUR ---
NEW IV INITIATED IN LEFT WRIST 20. IV IN RIGHT HAND REMOVED AFTER NOT FLUSHING. PT TOLERATED PROCEDURE WELL.
--- NOTE | 2018-10-14 02:00 | NUR ---
NG SUCTION RESUMED LOW INTERMITTENT PER MD ORDER.
[2018-10-14 05:52] LABS: BUN 14 mg/dl (7-24); CHLORIDE 106 mmol/L (98-107); CREATININE 0.72 mg/dL (0.55-1.02); PHOSPHOROUS 1.6 mg/dL (2.5-4.9); POTASSIUM 3.4 mmol/L (3.5-5.1); SODIUM 139 mmol/L (136-145)
[2018-10-14 05:55] LABS: BASO % 0.5 % (0.0-1.0); EOS # 0.3 10*3/uL (0.0-0.4); EOS % 3.2 % (1.0-4.0); HEMATOCRIT 40.6 % (37.0-47.0); LYMPH # 1.8 10*3/uL (1.3-4.4); MEAN CELL VOLUME 87.5 fl (81.0-99.0); MONO # 0.9 10*3/uL (0.1-1.0); MONO % 11.4 % (3.0-9.0); NEUT # 4.7 10*3/uL (2.3-7.9); NEUT % 61.4 % (47.0-73.0); PLATELET COUNT AUTOMATED 287 10*3/uL (130-400); RED BLOOD COUNT 4.64 10*6/uL (4.10-5.10); RED CELL DISTRI WIDTH 13.2 % (0-14.5); WHITE BLOOD COUNT 7.7 10*3/uL (4.8-10.8)
[2018-10-14 08:00] VITALS: BP 173/86
--- NOTE | 2018-10-14 09:00 | NUR ---
case management visits with patient, patient states she will be going home when able and denies any home needs. again discussed with her VNA and she declines any services at this time
--- NOTE | 2018-10-14 11:12 | NUR ---
DEMEROL 12.5 FOR ABD PAIN HAS BEEN EFFECTIVE
[2018-10-14 12:00] VITALS: BP 129/70
[2018-10-14 16:00] VITALS: BP 151/77
[2018-10-14 20:00] VITALS: BP 138/65
--- NOTE | 2018-10-14 20:00 | NUR ---
SITTING UP IN BED. RESPIRATIONS EASY. LUNGS DIMINISHED, CLEAR. PULSE OX 97% RA, 2L PRESENT AT BEDSIDE FOR PRN USE. NG NOTED TO RIGHT NARE. ABD SOFT WITH HYPOACTIVE BOWEL SOUNDS, C/O RUQ TENDERNESS. OFFERED AND EDUCATED REGARDING TEDS/SCDS, DECLINED. IV FLUIDS AND PROCALAMINE INFUSING PER ORDER. CALL LIGHT WITHIN REACH. NO VOICED COMPLAINTS
--- NOTE | 2018-10-14 20:25 | NUR ---
24 HR chart check completed.
--- NOTE | 2018-10-14 21:20 | NUR ---
PATIENT SITTING UP IN BED. EMESIS BASIN FULL OF WATERY LIQUID. FLUIDS TAKEN FROM PATIENT AND NG RESUMED AT LIS. 400 CC GREEN LIQUID IMMEDIATELY OBTAINED.
--- NOTE | 2018-10-14 23:41 | NUR ---
PATIENT AGAIN C/O NAUSEA. MEDICATED WITH ZOFRAN IV PER PRN ORDER. NG MAINTAINED TO LIS WITH, BROWN DRAINAGE NOTED.
[2018-10-15] VITALS: BP 131/59
--- NOTE | 2018-10-15 00:40 | NUR ---
PATIENT SITTING UP IN BED, STATES "I'M MISERABLE, WHAT A NIGHT." PATIENT WITH BASIN, DRY HEAVING. C/O ABD PAIN AND RESTLESS LEGS. REQUESTING DR BE CALLED FOR EXTRA DOSE OF PHENERGAN AND FOR DEMEROL THAT SHE RECEIVED EARLIER TODAY. DR ELDRIDGE CONTACTED AND INFORMED OF PATIENT'S REQUEST. WILL REVIEW CHART AND ENTER ORDERS
--- NOTE | 2018-10-15 01:18 | NUR ---
MEDICATED WITH 1 TIME DOSE OF DEMEROL FOR COMPLAINTS OF ABD PAIN RATING A 7 AND RESTLESS LEGS. ALSO MEDICATED WITH 1 TIME DOSE PHENERGAN TO ASSIST WITH NAUSEA/DRY HEAVES. BG MAINTAINED. IV FLUIDS INFUSING. WILL MONITOR
--- NOTE | 2018-10-15 02:00 | NUR ---
MEDS APPEAR EFFECTIVE. SLEEPING. NO ACUTE DISTRESS NOTED. RESPIRATIONS EASY. CALL LIGHT WIHTIN REACH
--- NOTE | 2018-10-15 06:10 | NUR ---
SLEPT THROUGHOUT NIGHT AFTER RECEIVING DEMEROL AND PHENERGAN. NG MAINTAINED TO RIGHT NARE WITH 450 CC BROWN LIQUID DRAINAGE NOTED. LARGE LIQUID GREEN BM. IV FLUIDS AND PROCALAMINE MAINTAINED PER ORDER. CALL LIGHT WITHIN REACH. NO VOICED COMPLAINTS
[2018-10-15 06:59] LABS: BASO % 0.5 % (0.0-1.0); EOS # 0.2 10*3/uL (0.0-0.4); EOS % 2.5 % (1.0-4.0); HEMATOCRIT 39.6 % (37.0-47.0); LYMPH # 2.2 10*3/uL (1.3-4.4); LYMPH % 27.5 % (27.0-41.0); MEAN CELL VOLUME 86.8 fl (81.0-99.0); MEAN CORPUSCULAR HGB 28.5 pg (27.0-31.0); MEAN CORPUSCULAR HGB CONC 32.8 g/dl (33.0-37.0); MEAN PLATELET VOLUME 11.1 fl (9.6-12.3); MONO % 11.9 % (3.0-9.0); NEUT # 4.6 10*3/uL (2.3-7.9); NEUT % 57.1 % (47.0-73.0); PLATELET COUNT AUTOMATED 319 10*3/uL (130-400); RED BLOOD COUNT 4.56 10*6/uL (4.10-5.10); RED CELL DISTRI WIDTH 13.2 % (0-14.5)
[2018-10-15 07:16] LABS: BUN 10 mg/dl (7-24); CHLORIDE 106 mmol/L (98-107); CREATININE 0.74 mg/dL (0.55-1.02); PHOSPHOROUS 2.7 mg/dL (2.5-4.9); POTASSIUM 3.7 mmol/L (3.5-5.1); SODIUM 141 mmol/L (136-145)
[2018-10-15 08:00] VITALS: BP 155/69
--- NOTE | 2018-10-15 09:00 | NUR ---
case management visits with patient, discussed with her a possible short term long-term stay prior to going home, patient stated that she was not sure what she would need when she was ready for discharge, but wanted to go home, patient stated she would see how she progresses when her n/g tube is removed and she is able to be up and moving, case management will follow
--- NOTE | 2018-10-15 10:48 | NUR ---
PHYSICAL THERAPY PAtient with director of manufacturing operations at this time. Thank you for this referral. Alyssa Frias,PT
[2018-10-15 12:00] VITALS: BP 151/70
[2018-10-15 13:00] VITALS: BP 136/82
--- NOTE | 2018-10-15 13:03 | NUR ---
OFF FLOOR TO SURGERY.
--- NOTE | 2018-10-15 13:21 | NUR ---
Patient out of her room for an EDG. OTR will recheck at a later date. Hallie Lopes OTR/l
--- NOTE | 2018-10-15 13:23 | NUR ---
PHYSICAL THERAPY PAtient at surgery at this time. Alyssa Frias,PT
--- NOTE | 2018-10-15 15:50 | NUR ---
ARRIVED VIA BED FROM OPERATING ROOM. INTUBATED WITH A #7 ENDOTUBE AT 19 LIP. NGT PLACEMENT COULD NOT BE HEARD WITH AIR BOLUS SO WE ADVANCED NGT AND PLACEMENT VERIFIED. 16 KOREAN GUTIERREZ PLACED FOR SCANT AMOUNT YELLOW URINE. DIPRIVAN STARTED IN RIGHT FOOT AT 20 SYEDA'S (11.2CC/HR) LUNGS CLEAR BILATERALLY.
[2018-10-15 16:00] VITALS: BP 163/81
[2018-10-15 17:03] LABS: ABG BASE EXCESS 1.8 mmol/L (-2.0-2.0); ABG HCO3 26.2 mmol/l (22-26); ABG O2 SATURATION 99.9 % (95-97); ARTERIAL BLOOD GAS PCO2 43.9 mmHg (35-45); ARTERIAL BLOOD GAS PH 7.397 (7.35-7.45)
--- NOTE | 2018-10-15 17:13 | NUR ---
DR. TOUSSAINT CALLED AND UPDATED ON PATIENT'S CONDITION AND EGD/COLO FINDINGS. NOTIFIED THAT PATIENT WILL BE TRANSFERRED TO [facility] WHEN A BED BECOMES AVAILABLE
--- NOTE | 2018-10-15 17:15 | NUR ---
DR. SOSA HERE AND PLACED A RIJ MLC
--- NOTE | 2018-10-15 17:21 | NUR ---
FIO2 TO 35 % VIA VENT. PO2 334 ON ABG. SAT 99.9. RN INFORMED. DR. SOSA PRESENT AND AGREED.
--- NOTE | 2018-10-15 17:26 | NUR ---
DR. DIAZ NOTIFIED OF CONSULT AND ABG RESULTS.
--- NOTE | 2018-10-15 17:50 | NUR ---
Called Dr. Hernandez to confirm order of [address] Hernandez instructed me to increased PEEP to 7.
[2018-10-15 20:00] VITALS: BP 160/75
[2018-10-15 20:16] LABS: ABG BASE EXCESS 1.6 mmol/L (-2.0-2.0); ABG HCO3 27.2 mmol/l (22-26); ABG O2 SATURATION 99.5 % (95-97); ARTERIAL BLOOD GAS PCO2 48.9 mmHg (35-45); ARTERIAL BLOOD GAS PH 7.363 (7.35-7.45)
--- NOTE | 2018-10-15 20:23 | NUR ---
REPORT CALLED TO CAMELIA AT [facility] PATIENTS DAUGHTER HERB KENNY
--- NOTE | 2018-10-15 21:15 | NUR ---
PATIENT LEFT BY STAT MEDVAC ON VENT AND SEDATED FAMILY IS INFORMED OF HER LEAVING. REPORT ALREADY CALLED.
[2019-02-21] MEDS ORDERED: PEPCID AC10 M2 PO (14:15)
== END 2018-10-15 21:00 | disposition short-term general hospital (02) | DRG 378 ==
LOC: ED 15:05 → EDHOLD 17:54 → 4E 17:54 → ICCU 10-15 15:35
PROVIDERS: Internal Medicine; Internal Medicine Critical Care Medicine; Obstetrics & Gynecology; Physician Assistant; ADMIT Internal Medicine
PROC: 0DB68ZX Excision of Stomach, Via Natural or Artificial Opening Endoscopic, Diagnostic (ICD-10-PCS; principal; 2018-10-15)
PROC: 0DBB8ZX Excision of Ileum, Via Natural or Artificial Opening Endoscopic, Diagnostic (ICD-10-PCS; principal; 2018-10-15)
PROC: 0D9670Z Drainage of Stomach with Drainage Device, Via Natural or Artificial Opening (ICD-10-PCS; principal; 2018-10-15)
PROC: 5A1935Z Respiratory Ventilation, Less than 24 Consecutive Hours (ICD-10-PCS; principal; 2018-10-15)
PROC: B548ZZA Ultrasonography of Superior Vena Cava, Guidance (ICD-10-PCS; principal; 2018-10-15)
PROC: 02HV33Z Insertion of Infusion Device into Superior Vena Cava, Percutaneous Approach (ICD-10-PCS; principal; 2018-10-15)
PROC: 0BH17EZ Insertion of Endotracheal Airway into Trachea, Via Natural or Artificial Opening (ICD-10-PCS; principal; 2018-10-15)
DX: K57.91 Diverticulosis of intestine, part unspecified, without perforation or abscess with bleeding (principal); K56.690 Other partial intestinal obstruction; C17.9 Malignant neoplasm of small intestine, unspecified; T17.918A Gastric contents in respiratory tract, part unspecified causing other injury, initial encounter; K29.01 Acute gastritis with bleeding; K52.9 Noninfective gastroenteritis and colitis, unspecified; K64.8 Other hemorrhoids; K76.0 Fatty (change of) liver, not elsewhere classified; D64.9 Anemia, unspecified; R73.9 Hyperglycemia, unspecified; D72.829 Elevated white blood cell count, unspecified; E53.8 Deficiency of other specified B group vitamins; N18.3 Chronic kidney disease, stage 3 (moderate); E66.9 Obesity, unspecified; J44.9 Chronic obstructive pulmonary disease, unspecified; F41.9 Anxiety disorder, unspecified; I12.9 Hypertensive chronic kidney disease with stage 1 through stage 4 chronic kidney disease, or unspecified chronic kidney disease; E78.5 Hyperlipidemia, unspecified; F32.9 Major depressive disorder, single episode, unspecified; E83.41 Hypermagnesemia; E87.6 Hypokalemia; E83.39 Other disorders of phosphorus metabolism; K63.5 Polyp of colon; K21.0 Gastro-esophageal reflux disease with esophagitis; F17.200 Nicotine dependence, unspecified, uncomplicated; Z82.5 Family history of asthma and other chronic lower respiratory diseases; Z90.710 Acquired absence of both cervix and uterus; Z88.2 Allergy status to sulfonamides; Z88.1 Allergy status to other antibiotic agents; Z88.8 Allergy status to other drugs, medicaments and biological substances; Z79.51 Long term (current) use of inhaled steroids; Z79.899 Other long term (current) drug therapy; Z85.118 Personal history of other malignant neoplasm of bronchus and lung; Z68.38 Body mass index [BMI] 38.0-38.9, adult; Y92.239 Unspecified place in hospital as the place of occurrence of the external cause

== ENCOUNTER 2018-10-30 01:09 | Inpatient (IN) | payer OTHER ==
[~2018-10-30] VITALS: Ht 154.9 cm; Wt 87.5 kg
[2018-10-30] VITALS (7 sets, daily range): BP systolic 102–128; BP diastolic 55–72
--- NOTE | ~2018-10-30 | EKG ---
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: : 1950 Requested By: LATASHA PROCTOR Order Number: [id number] Reading MD: Tavares Henao MD Measurements Intervals [place] Rate: 94 P: 76 WV: 157 QRS: -25 QRSD: 95 T: 68 QT: 367 QTc: 459 Interpretive Statements Sinus rhythm Ventricular premature complex Borderline left axis deviation Compared to ECG 06/08/2018 18:17:49 Ventricular premature complex(es) now present T-wave abnormality no longer present Possible ischemia no longer present Prolonged QT interval no longer present Electronically Signed On 10-31-2018 4:44:17 PST by Tavares Henao MD CM:EKGRPT:ELECTROCARDIOGRAM REPORT [id number] LATASHA PROCTOR MD EPIPHANY DRAFT REPORT LATASHA PROCTOR MD
[~2018-10-30 01:09] MED LIST changes: +VISTARIL25 MG PO
[2018-10-30 01:52] LABS: BASO # 0.1 10*3/uL (0.0-0.1); BASO % 0.6 % (0.0-1.0); EOS # 0.5 10*3/uL (0.0-0.4); EOS % 4.1 % (1.0-4.0); HEMATOCRIT 43.2 % (37.0-47.0); HEMOGLOBIN 13.9 g/dl (12.0-16.0); LYMPH # 2.6 10*3/uL (1.3-4.4); LYMPH % 23.2 % (27.0-41.0); MEAN CELL VOLUME 86.1 fl (81.0-99.0); MEAN CORPUSCULAR HGB 27.7 pg (27.0-31.0); MEAN CORPUSCULAR HGB CONC 32.2 g/dl (33.0-37.0); MONO # 0.9 10*3/uL (0.1-1.0); NEUT # 7.2 10*3/uL (2.3-7.9); NEUT % 63.3 % (47.0-73.0); PLATELET COUNT AUTOMATED 406 10*3/uL (130-400); RED BLOOD COUNT 5.02 10*6/uL (4.10-5.10); RED CELL DISTRI WIDTH 14.1 % (0-14.5); WHITE BLOOD COUNT 11.3 10*3/uL (4.8-10.8)
--- NOTE | 2018-10-30 02:02 | NUR ---
PT DAUGHTER CONTACT INFORMATION: HERB ZOYA [phone], CALL IF PT ADMITTED OR DISCHARGED AND ANY DETAILS ON PLAN OF CARE.
[2018-10-30 02:14] LABS: ACT PARTIAL THROMBO TIME 26.9 SECONDS (20.8-31.5); INTERNATIONAL NORM RATIO 1.1 (2.0-3.5)
[2018-10-30 02:19] LABS: ALBUMIN 3.8 gm/dl (3.1-4.5); ALKALINE PHOSPHATASE 66 U/L (45-117); BUN 23 mg/dl (7-24); CHLORIDE 102 mmol/L (98-107); CREATININE 2.07 mg/dL (0.55-1.02); LIPASE 272 U/L (73-393); POTASSIUM 3.7 mmol/L (3.5-5.1); SGOT/AST 19 IU/L (3-35); SGPT/ALT 29 U/L (12-78); SODIUM 134 mmol/L (136-145)
[2018-10-30 02:22] LABS: TROPONIN I < 0.015 ng/ml (<0.045)
--- NOTE | 2018-10-30 04:03 | NUR ---
PATIENTS DAUGHTER UPDATED ON PATIENTS STATUS. PATIENT TO CT AT THIS TIME WELL.
--- NOTE | 2018-10-30 07:22 | NUR ---
REPORT RECEIVED AT 0705 FROM EULALIO KRUEGER. THIS PT IS AWAKE AND ALERT. HER COLOR IS FAIR,SKIN W/D. RESPIRATIONS ARE NON-LABORED. IV FLUID IS INFUSING,SITE APPEARS ASYMPTOMATIC. ABDOMINAL CATHIE ARE INTACT,WOUND IS SLIGHTLY ERYTHEMATOUS. SHE WILL BE ADMITTED,WAITING FOR ROOM ASSIGNMENT. RIN KRUEGER
--- NOTE | 2018-10-30 08:00 | NUR ---
A 68, admitted to , under the services of JONG Maza DO with a diagnosis of Abdominal. Chief complaint is abdominal pain nausea/vomitting. Patient arrived via stretcher from ER. Monitor applied. Initial assessment completed. Vital signs taken and recorded. JONG MAZA DO notified of admission to the unit. Orders received. See assessment for past medical history, medications and allergies. Patient and/or family oriented to unit. [address] visitation policy reviewed. Clothing/patient valuable form completed. KEVIN BHANDARI
[2018-10-30] MEDS ORDERED: PAXIL40 M1 PO (08:51)
[2018-10-30] MEDS ORDERED: SPIRIVA18 MCG INH (08:52)
[2018-10-30] MEDS ORDERED: ALBUTEROL2.5 MG/0.5 INH (08:52)
[2018-10-30] MEDS ORDERED: Lovenox40 MG/0.4 PO (08:53)
[2018-10-30] MEDS ORDERED: PERCOCET 5-3251 EACH PO (08:53)
[2018-10-30] MEDS ORDERED: METAMUCIL PACK3.4 GM PO (08:54)
[2018-10-30] MEDS ORDERED: IMODIUM A-D2 M2 PO (08:55)
[2018-10-30] MEDS ORDERED: NYSTOP60 GM V (08:57)
[2018-10-30] MEDS ORDERED: ZANTAC 150150 MG PO (08:57)
--- NOTE | 2018-10-30 10:44 | NUR ---
[place] given per patient request for abdominal pain rated 6/10. Will monitor.
--- NOTE | 2018-10-30 11:10 | NUR ---
Patient was bladder scanned for 41ml and no urge to void. Will monitor.
--- NOTE | 2018-10-30 11:30 | NUR ---
[place] effective. Patient asleep with respirations >12.
--- NOTE | 2018-10-30 13:53 | NUR ---
Contacted Dr. Mejia for consult regarding hemicholectomy and abdominal pain. No new orders. Physician to follow up at bedside.
--- NOTE | 2018-10-30 16:50 | NUR ---
Patient voided 300ml. Urine sent for analysis.
--- NOTE | 2018-10-30 17:03 | NUR ---
[place] given per patient request for abdominal pain rated 6/10. Will monitor.
[2018-10-30 17:11] LABS: BILIRUBIN NEGATIVE (NEGATIVE); BLOOD NEGATIVE (NEGATIVE); CLARITY SL CLOUDY (CLEAR); COLOR YELLOW (YELLOW); GLUCOSE NEGATIVE (NEGATIVE); KETONE NEGATIVE (NEGATIVE); LEUKO ESTERASE NEGATIVE (NEGATIVE); NITRITE NEGATIVE (NEGATIVE); SPECIFIC GRAVITY >= 1.030 (1.005-1.030); UROBILINOGEN 0.2 E.U./dl (0.2-1.0)
[2018-10-30 17:25] LABS: EPITHELIAL CELLS TNTC; YEAST 2+
--- NOTE | 2018-10-30 17:50 | NUR ---
[place] effective. Patient satisfied.
--- NOTE | 2018-10-30 19:36 | NUR ---
TOOK OVER CARE OF PT AT THIS TIME. PT RESTING IN BED, SLEEPING. RESPIRATIONS UNLABORED WITH AUDIBLE EXPIRATORY WHEEZE. PT EASILY AROUSED. ASSESSMENT COMPLETE AT THIS TIME. WILL CONTINUE TO MONITOR. IV FLUIDS INFUSING PER ORDER. CALLL IGHT IN REACH.
[2018-10-31] VITALS: BP 147/84
--- NOTE | 2018-10-31 03:00 | NUR ---
PT [facility] STAFF PHARMACIST LIGHT FOR ASSISTANCE WITH EMPTYING ILEOSTOMY BAG. 550 CC OUT AT THIS TIME. PT ASSISTED WITH GOWN CHANGE. NO S/S OF DISTRESS. RESPS EASY AND UNLABORED. ALL NEEDS MET. CALL LIGHT IN REACH.
[2018-10-31 06:29] LABS: BASO # 0.1 10*3/uL (0.0-0.1); BASO % 0.9 % (0.0-1.0); EOS # 0.3 10*3/uL (0.0-0.4); EOS % 4.9 % (1.0-4.0); HEMATOCRIT 38.2 % (37.0-47.0); HEMOGLOBIN 12.2 g/dl (12.0-16.0); LYMPH # 2.2 10*3/uL (1.3-4.4); LYMPH % 31.9 % (27.0-41.0); MEAN CELL VOLUME 87.8 fl (81.0-99.0); MEAN CORPUSCULAR HGB CONC 31.9 g/dl (33.0-37.0); MONO # 0.7 10*3/uL (0.1-1.0); MONO % 10.1 % (3.0-9.0); NEUT # 3.6 10*3/uL (2.3-7.9); NEUT % 51.6 % (47.0-73.0); PLATELET COUNT AUTOMATED 329 10*3/uL (130-400); RED BLOOD COUNT 4.35 10*6/uL (4.10-5.10)
[2018-10-31 06:45] LABS: CREATININE 1.2 mg/dL (0.55-1.02); PHOSPHOROUS 3.4 mg/dL (2.5-4.9); POTASSIUM 4.3 mmol/L (3.5-5.1); TOTAL PROTEIN 7.6 gm/dL (6.4-8.2)
[2018-10-31 06:51] LABS: FREE T4 1.08 ng/dl (0.76-1.46); THYROID STIM HORMONE (HS) 1.64 uIU/ml (0.358-4.75)
[2018-10-31 07:03] LABS: ACT PARTIAL THROMBO TIME 25.5 SECONDS (20.8-31.5)
[2018-10-31 08:00] VITALS: BP 116/85
--- NOTE | 2018-10-31 08:14 | NUR ---
PATIENT MEDICATED WITH NORCO AT THIS TIME FOR COMPLAINTS OF ABDOMINAL PAIN. WILL CONTINUE TO MONITOR PATIENT FOR EFFECTIVENESS.
--- NOTE | 2018-10-31 12:45 | NUR ---
DR. BEAVERS ORDERED TO CALL DR. TOUSSAINT AND SEE IF PATIENT'S CATHIE NEED REMOVED, AND IF HE FELT PATIENTS STOOL AMOUNT IS APPROPRIATE. CALLED DR. TOUSSAINT AT THIS TIME. DR. TOUSSAINT STATED NOT TO REMOVE CATHIE, AND STATES THAT HE IS GOING TO TALK TO DR. HOLMAN HIMSELF. NO NEW ORDERS RECIEVED AT THIS TIME.
[2018-10-31 16:00] VITALS: BP 129/78
[2018-10-31 20:00] VITALS: BP 146/77
--- NOTE | 2018-10-31 22:29 | NUR ---
PRN ORDER FOR NORCO REQUESTED AND RECIEVED FOR 8/10 PAIN TO ABDOMINAL AREA. WILL MONITOR FOR EFFECTIVENESS
[2018-11-01] VITALS: BP 151/68
[2018-11-01 06:18] LABS: ALBUMIN 3.2 gm/dl (3.1-4.5); BUN 26 mg/dl (7-24); CHLORIDE 113 mmol/L (98-107); CREATININE 1.05 mg/dL (0.55-1.02); PHOSPHOROUS 3.3 mg/dL (2.5-4.9); POTASSIUM 4.2 mmol/L (3.5-5.1); SODIUM 138 mmol/L (136-145)
[2018-11-01 08:00] VITALS: BP 142/69
--- NOTE | 2018-11-01 09:00 | NUR ---
Digital Composer in to talk to patient. Patient states lives at home with daughter. There are few steps in the home. Physician: john smith Pharmacy: [facility] services: [facility] Patient's level of ADLs: INDEPENDENT Patient has working utilities: all working DME: none Follow-up physician's appointment after d/c: will be made by hospitalist nurse director upon discharge Does patient want to access PORTAL?: no Discharge plan discussed with patient, patient lives at home with her daughter, she is independent in adls and ambulation, patient states she recently had surgery and [facility]. patient states she will be going home when able and would like [facility] to continue. case management will send an order to [facility] to resume services upon discharge. patient denies any other needs at this time. MICHAEL LANGE
[2018-11-01 12:00] VITALS: BP 141/66
--- NOTE | 2018-11-01 14:04 | NUR ---
Nursing screen received and chart review completed. Patient admitted 10/30/18 for abdominal pain. Patient was living with her daughter and independent prior to admission. Consider Occupational Therapy referral for d/c planning if patient has a decline in ADLs or mobility. Thank you. Meseret Lopes OTR/L
--- NOTE | 2018-11-01 14:26 | NUR ---
ELVIS REID [id number] Please refer to the physician's history and physical for past medical history, comorbid conditions, and allergies. Diagnosis: ENTERITIS,STATUS POST RIGHT HEMICOLECTOMY, ACUTE Amanuel Score: 22,LOW OR NO RISK WOUND DESCRIPTIONS: Location of the wound: MID ABD Type of wound: SUGGICAL Thickness: Partial Size: 6.1cm X 0.1cm X <0.1cM Tunneling: NONE Undermining: NONE Sinus Tract: NONE Presence of Exudate: NONE Amount: None Color: [place] Odor: None Periwound Skin Appearance: Erythema Wound edges: CLOSED WITH 14 CATHIE. Pain (associated with wound): PATIENT DENIED AT TIME OF ASSESSMENT How does patient state this happened? PATIENT STATES SHE HAD SURGERY AT [facility] ON OCTOBER 19, 2018. PATIENT WILL FOLLOW UP WITH DR. CUMMINS AT [facility] ON SATURDAY NOVEMBER 03, 2018 TO REMOVE CATHIE. THREE SMALL INCISIONS WELL APPROXIMATED WITH TWO CATHIE EACH NOTED. NO DRAINAGE NOTED. Surface the patient is resting on: Isoflex SKIN PREVENTION RECOMMENDATION: 1. Pressure redistribution support surface as appropriate 2. Elevate heels 3. Remove boots/TEDS every shift and reapply 4. Head of bed 30 degrees as tolerated 5. Assess nutrition and hydration 6. Manage moisture 7. Avoid the use of containment devices while in bed 8. Use absorptive products on surfaces limit layers of linens on bed 9. Turn and reposition every 1-2 hours in bed and every 1 hour in chair as tolerated 10. Weight shifts every 15 minutes while up in chair 11. Offloading with pillows or device to keep heels elevated off bed 12. Monitor skin at least every shift 13. Inspect under medical devices twice a day WOUND TREATMENT RECOMMENDATIONS: CLEANSE WITH SOAP AND WATER AND LEAVE OPEN TO AIR.
[2018-11-01 16:00] VITALS: BP 128/63
--- NOTE | 2018-11-01 16:03 | NUR ---
Dr. Coffey notified of wound care recommendations.
--- NOTE | 2018-11-01 19:53 | NUR ---
PATIENT MEDICATED WITH NORCO FOR COMPLAINTS OF INCISIONAL/ABDOMINAL PAIN. WILL MONITOR FOR EFFECTIVENESS. CALL LIGHT IN REACH.
[2018-11-01 20:00] VITALS: BP 124/75
[2018-11-02] VITALS: BP 151/72
[2018-11-02 07:00] LABS: BUN 25 mg/dl (7-24); CHLORIDE 111 mmol/L (98-107); CREATININE 1.07 mg/dL (0.55-1.02); POTASSIUM 4.4 mmol/L (3.5-5.1); SODIUM 140 mmol/L (136-145)
[2018-11-02 08:00] VITALS: BP 124/86
--- NOTE | 2018-11-02 09:00 | NUR ---
case management visits with patient, patient will be going home when able and have [facility]. patient denies any other needs at this time
--- NOTE | 2018-11-02 11:23 | NUR ---
[facility] notified that patient is being discharged to home today
[2018-11-02 12:00] VITALS: BP 118/57
--- NOTE | 2018-11-02 13:27 | NUR ---
Discharge instructions reviewed with patient/family. Patient receptive and verbalizes understanding. Follow-up care arranged. Written instructions given to patient/family. WENT OVER DISCHARGE PACKET WITH PATIENT AND FAMILY. PATIENT AWARE OF FOLLOW UP APPOINTMENT WITH PCP. IV REMOVED, PATIENT TOLERATED WELL. DISCHARGE WOUND PICTURES TAKEN. PATIENT DENIES ANY NEEDS OR CONCERNS AT THIS TIME. PATIENT ACCOMPANIED TO CAR VIA WHEELCHAIR BY STAFF AND FAMILY. ALL BELONGINGS WITH PATIENT AT THIS TIME. GRAYSON MILTON E
--- NOTE | 2018-11-03 07:43 | NUR ---
PHYSICAL THERAPY Nursing screen received. Patient discharged at is time. Thank you. Alyssa Frias,PT
[2019-02-21] MEDS ORDERED: PEPCID AC10 M2 PO (14:15)
== END 2018-11-02 13:27 | disposition home health service (06) | DRG 391 ==
LOC: ED 01:09 → 4E 07:02 → EDHOLD 07:02 → 4E 07:42
PROVIDERS: Emergency Medicine Emergency Medical Services; Family Medicine; Internal Medicine; ADMIT Emergency Medicine
DX: K52.9 Noninfective gastroenteritis and colitis, unspecified (principal); N17.0 Acute kidney failure with tubular necrosis; E87.2 Acidosis; C18.1 Malignant neoplasm of appendix; E53.8 Deficiency of other specified B group vitamins; E55.9 Vitamin D deficiency, unspecified; E66.9 Obesity, unspecified; I12.9 Hypertensive chronic kidney disease with stage 1 through stage 4 chronic kidney disease, or unspecified chronic kidney disease; N18.3 Chronic kidney disease, stage 3 (moderate); K57.90 Diverticulosis of intestine, part unspecified, without perforation or abscess without bleeding; J43.9 Emphysema, unspecified; K76.0 Fatty (change of) liver, not elsewhere classified; E78.5 Hyperlipidemia, unspecified; F32.4 Major depressive disorder, single episode, in partial remission; Z93.2 Ileostomy status; Z90.49 Acquired absence of other specified parts of digestive tract; Z85.118 Personal history of other malignant neoplasm of bronchus and lung; Z90.2 Acquired absence of lung [part of]; Z88.2 Allergy status to sulfonamides; Z88.1 Allergy status to other antibiotic agents; Z90.710 Acquired absence of both cervix and uterus; Z87.891 Personal history of nicotine dependence; Z82.49 Family history of ischemic heart disease and other diseases of the circulatory system; Z82.5 Family history of asthma and other chronic lower respiratory diseases; Z83.79 Family history of other diseases of the digestive system; Z79.899 Other long term (current) drug therapy; Z79.01 Long term (current) use of anticoagulants; Z68.36 Body mass index [BMI] 36.0-36.9, adult

== ENCOUNTER → 2019-02-22 | Day surgery (SDC) | payer OTHER ==
[2019-02-21 14:31] VITALS: BP 130/84
[2019-02-21 15:44] LABS: BASO # 0.1 10*3/uL (0.0-0.1); BASO % 0.9 % (0.0-1.0); EOS # 0.3 10*3/uL (0.0-0.4); EOS % 3.4 % (1.0-4.0); HEMATOCRIT 43.1 % (37.0-47.0); HEMOGLOBIN 13.3 g/dl (12.0-16.0); LYMPH # 2.6 10*3/uL (1.3-4.4); LYMPH % 34.6 % (27.0-41.0); MEAN CELL VOLUME 86.2 fl (81.0-99.0); MEAN CORPUSCULAR HGB 26.6 pg (27.0-31.0); MEAN CORPUSCULAR HGB CONC 30.9 g/dl (33.0-37.0); MEAN PLATELET VOLUME 10.3 fl (9.6-12.3); MONO # 0.6 10*3/uL (0.1-1.0); MONO % 7.7 % (3.0-9.0); NEUT % 53.3 % (47.0-73.0); PLATELET COUNT AUTOMATED 303 10*3/uL (130-400); RED CELL DISTRI WIDTH 14.6 % (0-14.5); WHITE BLOOD COUNT 7.6 10*3/uL (4.8-10.8)
[~2019-02-22] VITALS: Ht 154.9 cm; Wt 92.1 kg
[~2019-02-22] MED LIST changes: +ALBUTEROL2.5 MG/0.5 INH; +FAMOTIDINE 1010 MG PO; +IMODIUM A-D2 M2 PO; +LIDEX 0.05% CRE15 GM T; +Lovenox40 MG/0.4 PO; +METAMUCIL PACK3.4 GM PO; +NYSTOP60 GM T; +NYSTOP60 GM V; +OXYCODONE HCL5 MG PO; +PEPCID AC10 M2 PO; +PERCOCET 5-3251 EACH PO; +PREDNISONE50 MG PO; +PROCHLORPERAZIN10 MG PO; +SPIRIVA18 MCG INH; +SPIRIVA18 MCG PO; +VENTOLIN 02.5 MG/3 M INH; +VIBRAMYCIN100 MG PO; +VISTARIL25 M2 PO; +VITAMIN D5000 UNI1 PO; +ZANTAC 150150 MG PO
[2019-02-22 12:15] VITALS: BP 151/88
[2019-02-22 15:00] VITALS: BP 142/54
[2019-02-22 15:15] VITALS: BP 165/85
[2019-02-22 15:30] VITALS: BP 152/75
[2019-02-22 15:45] VITALS: BP 165/75
== END | disposition home or self-care (01) ==
LOC: SDC 02-21 13:15
DX: C18.1 Malignant neoplasm of appendix (principal); I12.9 Hypertensive chronic kidney disease with stage 1 through stage 4 chronic kidney disease, or unspecified chronic kidney disease; N18.3 Chronic kidney disease, stage 3 (moderate); J44.9 Chronic obstructive pulmonary disease, unspecified; G47.00 Insomnia, unspecified; F32.9 Major depressive disorder, single episode, unspecified; F17.210 Nicotine dependence, cigarettes, uncomplicated; F41.9 Anxiety disorder, unspecified; F12.90 Cannabis use, unspecified, uncomplicated; E78.00 Pure hypercholesterolemia, unspecified; Z88.1 Allergy status to other antibiotic agents; Z88.8 Allergy status to other drugs, medicaments and biological substances; Z88.2 Allergy status to sulfonamides; Z90.710 Acquired absence of both cervix and uterus; Z98.890 Other specified postprocedural states; Z93.3 Colostomy status; Z90.49 Acquired absence of other specified parts of digestive tract; Z85.118 Personal history of other malignant neoplasm of bronchus and lung; Z80.52 Family history of malignant neoplasm of bladder

== ENCOUNTER 2019-04-25 11:14 | Inpatient (IN) | payer OTHER ==
[2019-04-25] VITALS (8 sets, daily range): BP systolic 122–148; BP diastolic 52–86
[~2019-04-25] VITALS: Ht 154.9 cm; Wt 87.7 kg
--- NOTE | ~2019-04-25 | EKG ---
[place], [place] ELECTROCARDIOGRAM REPORT NAME: ELVIS REID UNIT #: [id number] ROOM: 506 DOCTOR: LILLY DRAFT REPORT BIRTHDATE: [birth year] 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1950 Requested By: FAUZIA SOLORIO Order Number: [id number] Reading MD: Michi Carreno Measurements Intervals [place] Rate: 81 P: 70 [place]: 156 QRS: -40 QRSD: 110 T: 57 QT: 410 QTc: 476 Interpretive Statements Sinus rhythm Left anterior fascicular block Abnormal R-wave progression, late transition Probable left ventricular hypertrophy Baseline wander in lead(s) V1 Compared to ECG 10/30/2018 01:40:37 Left anterior fascicular block now present Ventricular premature complex(es) no longer present Electronically Signed On 04-25-2019 12:03:06 PDT by Michi Carreno CM:EKGRPT:ELECTROCARDIOGRAM REPORT [id number] FAUZIA CARR DRAFT REPORT FAUZIA SOLORIO M.D.
--- NOTE | ~2019-04-25 | EKG ---
[place], [place] ELECTROCARDIOGRAM REPORT NAME: ELVIS REID UNIT #: [id number] ROOM: 506 DOCTOR: LILLY DRAFT REPORT BIRTHDATE: [birth year] [facility] Test Date: 2019-04-25 Test Time: 13:55:33 Pat Name: ELVIS REID Department: Room: 506 Gender: F Rn Anesthesiology: Flora Stewart : 1950 Requested By: FAUZIA SOLORIO Order Number: [id number] Reading MD: Michi Carreno Measurements Intervals [place] Rate: 81 P: 64 ND: 163 QRS: -39 QRSD: 102 T: 28 QT: 422 QTc: 490 Interpretive Statements Sinus rhythm Left ventricular hypertrophy Borderline prolonged QT interval Compared to ECG 10/30/2018 01:40:37 Left ventricular hypertrophy now present Ventricular premature complex(es) no longer present Electronically Signed On 04-25-2019 12:03:20 PDT by Michi Carreno CM:EKGRPT:ELECTROCARDIOGRAM REPORT [id number] FAUZIA CARR DRAFT REPORT FAUZIA SOLORIO M.D.
--- NOTE | ~2019-04-25 | EKG ---
[place], [place] ELECTROCARDIOGRAM REPORT NAME: ELVIS REID UNIT #: [id number] ROOM: 506 DOCTOR: LILLY DRAFT REPORT BIRTHDATE: [birth year] [facility] Test Date: 2019-04-25 Test Time: 17:36:27 Pat Name: ELVIS REID Department: Room: 506 Gender: F Executive Kitchen Manager: Shalonda Angulo : 1950 Requested By: FAUZIA SOLORIO Order Number: [id number] Reading MD: Michi Carreno Measurements Intervals [place] Rate: 71 P: 57 TN: 159 QRS: -37 QRSD: 105 T: 3 QT: 461 QTc: 502 Interpretive Statements Sinus rhythm Abnormal R-wave progression, late transition Left ventricular hypertrophy Borderline T abnormalities, anterior leads Prolonged QT interval Compared to ECG 04/25/2019 13:55:33 T-wave abnormality now present Electronically Signed On 04-26-2019 7:47:55 PDT by Michi Carreno CM:EKGRPT:ELECTROCARDIOGRAM REPORT [id number] FAUZIA CARR DRAFT REPORT FAUZIA SOLORIO M.D.
[~2019-04-25 11:14] MED LIST changes: -FAMOTIDINE 1010 MG PO; -LIDEX 0.05% CRE15 GM T; -NYSTOP60 GM T; -OXYCODONE HCL5 MG PO; -PREDNISONE50 MG PO; -PROCHLORPERAZIN10 MG PO; -SPIRIVA18 MCG PO; -VENTOLIN 02.5 MG/3 M INH; -VIBRAMYCIN100 MG PO; -VISTARIL25 M2 PO; -VITAMIN D5000 UNI1 PO
[2019-04-25 11:32] LABS: BASO % 0.4 % (0.0-1.0); EOS # 0.2 10*3/uL (0.0-0.4); EOS % 2.1 % (1.0-4.0); HEMOGLOBIN 13.9 g/dl (12.0-16.0); LYMPH # 2.2 10*3/uL (1.3-4.4); LYMPH % 27.3 % (27.0-41.0); MEAN CELL VOLUME 81.6 fl (81.0-99.0); MEAN CORPUSCULAR HGB 25.8 pg (27.0-31.0); MEAN CORPUSCULAR HGB CONC 31.6 g/dl (33.0-37.0); MEAN PLATELET VOLUME 10.4 fl (9.6-12.3); MONO # 0.6 10*3/uL (0.1-1.0); MONO % 6.8 % (3.0-9.0); NEUT # 5.1 10*3/uL (2.3-7.9); NEUT % 63.2 % (47.0-73.0); PLATELET COUNT AUTOMATED 228 10*3/uL (130-400); RED BLOOD COUNT 5.39 10*6/uL (4.10-5.10); RED CELL DISTRI WIDTH 14.7 % (0-14.5); WHITE BLOOD COUNT 8.1 10*3/uL (4.8-10.8)
[2019-04-25 11:44] LABS: ACT PARTIAL THROMBO TIME 28.2 SECONDS (20.0-32.1)
[2019-04-25 11:49] LABS: ALBUMIN 3.7 gm/dl (3.1-4.5); ALKALINE PHOSPHATASE 63 U/L (45-117); BUN 25 mg/dl (7-24); CHLORIDE 101 mmol/L (98-107); CREATININE 1.28 mg/dL (0.55-1.02); POTASSIUM 3.4 mmol/L (3.5-5.1); SGOT/AST 43 IU/L (3-35); SGPT/ALT 44 U/L (12-78); SODIUM 136 mmol/L (136-145); TOTAL PROTEIN 8.1 gm/dL (6.4-8.2)
[2019-04-25 11:50] LABS: TROPONIN I < 0.015 ng/ml (<0.045)
[2019-04-25] MEDS ORDERED: PAXIL40 M1 PO (16:32)
[2019-04-25] MEDS ORDERED: VENTOLIN 02.5 MG/3 M INH (16:32)
[2019-04-25] MEDS ORDERED: METAMUCIL PACK3.4 GM PO (16:33)
[2019-04-25] MEDS ORDERED: SPIRIVA18 MCG PO (16:33)
[2019-04-25] MEDS ORDERED: NYSTOP60 GM T (16:34)
[2019-04-25] MEDS ORDERED: FAMOTIDINE 1010 MG PO (16:34)
[2019-04-25] MEDS ORDERED: OXYCODONE HCL5 MG PO (16:35)
[2019-04-25] MEDS ORDERED: PROCHLORPERAZIN10 MG PO (16:35)
[2019-04-25] MEDS ORDERED: VISTARIL25 M2 PO (16:36)
[2019-04-25] MEDS ORDERED: PROAIR HFA8.5 GM INH (16:37)
[2019-04-26] VITALS: BP 154/67
[2019-04-26 04:00] VITALS: BP 132/78
[2019-04-26 07:05] LABS: BASO % 0.1 % (0.0-1.0); HEMATOCRIT 40.1 % (37.0-47.0); HEMOGLOBIN 12.4 g/dl (12.0-16.0); LYMPH % 11.2 % (27.0-41.0); MEAN CELL VOLUME 82.7 fl (81.0-99.0); MEAN CORPUSCULAR HGB 25.6 pg (27.0-31.0); MEAN CORPUSCULAR HGB CONC 30.9 g/dl (33.0-37.0); MEAN PLATELET VOLUME 11.2 fl (9.6-12.3); MONO # 0.6 10*3/uL (0.1-1.0); NEUT # 7.6 10*3/uL (2.3-7.9); NEUT % 81.9 % (47.0-73.0); PLATELET COUNT AUTOMATED 198 10*3/uL (130-400); RED BLOOD COUNT 4.85 10*6/uL (4.10-5.10); RED CELL DISTRI WIDTH 14.7 % (0-14.5); WHITE BLOOD COUNT 9.2 10*3/uL (4.8-10.8)
[2019-04-26 07:39] LABS: ALBUMIN 3.2 gm/dl (3.1-4.5); BUN 18 mg/dl (7-24); CHLORIDE 107 mmol/L (98-107); CHOLESTEROL 190 mg/dL (<200); CREATININE 1.09 mg/dL (0.55-1.02); PHOSPHOROUS 1.8 mg/dL (2.5-4.9); POTASSIUM 3.8 mmol/L (3.5-5.1); SGOT/AST 38 IU/L (3-35); SGPT/ALT 43 U/L (12-78); SODIUM 139 mmol/L (136-145); TOTAL PROTEIN 7.4 gm/dL (6.4-8.2); TRIGLYCERIDES 113 mg/dl (<150); VLDL CHOLESTEROL 23 mg/dL (6-40)
[2019-04-26 07:45] LABS: ALKALINE PHOSPHATASE 50 U/L (45-117); HDL CHOLESTEROL 44 mg/dl (40-60); LDL CHOLESTEROL 123 mg/dL (9-159)
[2019-04-26 08:00] VITALS: BP 140/80
[2019-04-26 08:07] LABS: VITAMIN D, 25-HYDROXY 13.5 ng/mL (30-100)
[2019-04-26 12:00] VITALS: BP 160/72
[2019-04-26] MEDS ORDERED: PREDNISONE50 MG PO (12:09)
[2019-04-26] MEDS ORDERED: VIBRAMYCIN100 MG PO (12:09)
[2019-04-26] MEDS ORDERED: VITAMIN D5000 UNI1 PO (12:10)
== END 2019-04-26 13:31 | disposition home or self-care (01) | DRG 682 ==
LOC: ED 11:14 → 5E 12:48 → EDHOLD 12:48 → 5E 13:04
PROVIDERS: Emergency Medicine; Family Medicine; ADMIT Family Medicine
DX: N17.0 Acute kidney failure with tubular necrosis (principal); J18.9 Pneumonia, unspecified organism; J44.1 Chronic obstructive pulmonary disease with (acute) exacerbation; J44.0 Chronic obstructive pulmonary disease with (acute) lower respiratory infection; C18.1 Malignant neoplasm of appendix; E86.0 Dehydration; E83.39 Other disorders of phosphorus metabolism; R73.9 Hyperglycemia, unspecified; R07.9 Chest pain, unspecified; E87.6 Hypokalemia; K57.90 Diverticulosis of intestine, part unspecified, without perforation or abscess without bleeding; E53.8 Deficiency of other specified B group vitamins; I11.9 Hypertensive heart disease without heart failure; R74.0 Nonspecific elevation of levels of transaminase and lactic acid dehydrogenase [LDH]; E66.9 Obesity, unspecified; K76.0 Fatty (change of) liver, not elsewhere classified; E78.5 Hyperlipidemia, unspecified; F32.9 Major depressive disorder, single episode, unspecified; Z85.118 Personal history of other malignant neoplasm of bronchus and lung; Z90.49 Acquired absence of other specified parts of digestive tract; Z87.891 Personal history of nicotine dependence; Z90.710 Acquired absence of both cervix and uterus; Z82.5 Family history of asthma and other chronic lower respiratory diseases; Z83.1 Family history of other infectious and parasitic diseases; Z82.49 Family history of ischemic heart disease and other diseases of the circulatory system; Z83.79 Family history of other diseases of the digestive system; Z88.2 Allergy status to sulfonamides; Z88.1 Allergy status to other antibiotic agents; Z91.040 Latex allergy status; Z79.899 Other long term (current) drug therapy; Z85.038 Personal history of other malignant neoplasm of large intestine; Z68.36 Body mass index [BMI] 36.0-36.9, adult

== ENCOUNTER 2019-04-28 18:51 | Emergency (ER) | payer OTHER ==
[~2019-04-28] VITALS: Ht 154.9 cm; Wt 90.3 kg
[~2019-04-28 18:51] MED LIST changes: +FAMOTIDINE 1010 MG PO; +NYSTOP60 GM T; +OXYCODONE HCL5 MG PO; +PREDNISONE50 MG PO; +PROCHLORPERAZIN10 MG PO; +SPIRIVA18 MCG PO; +VENTOLIN 02.5 MG/3 M INH; +VIBRAMYCIN100 MG PO; +VISTARIL25 M2 PO; +VITAMIN D5000 UNI1 PO
[2019-04-28] MEDS ORDERED: LIDEX 0.05% CRE15 GM T (19:23)
== END 2019-04-28 19:27 | disposition home or self-care (01) ==
LOC: ED 18:51
DX: R59.0 Localized enlarged lymph nodes (principal); M54.2 Cervicalgia; J44.9 Chronic obstructive pulmonary disease, unspecified; F12.10 Cannabis abuse, uncomplicated; Z88.1 Allergy status to other antibiotic agents; Z88.2 Allergy status to sulfonamides; Z91.040 Latex allergy status; Z79.899 Other long term (current) drug therapy; Z85.038 Personal history of other malignant neoplasm of large intestine; Z85.118 Personal history of other malignant neoplasm of bronchus and lung; Z87.891 Personal history of nicotine dependence; Z98.890 Other specified postprocedural states

== ENCOUNTER 2019-06-03 20:52 | Inpatient (IN) | payer OTHER ==
[~2019-06-03] VITALS: Ht 154.9 cm; Wt 87.5 kg
--- NOTE | ~2019-06-03 | EKG ---
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
[~2019-06-03 20:52] MED LIST changes: +LIDEX 0.05% CRE15 GM T
[2019-06-03 21:00] VITALS: BP 131/77
[2019-06-03 21:45] LABS: BASO % 0.3 % (0.0-1.0); EOS # 0.1 10*3/uL (0.0-0.4); EOS % 0.6 % (1.0-4.0); HEMATOCRIT 43.6 % (37.0-47.0); LYMPH # 1.8 10*3/uL (1.3-4.4); LYMPH % 15.3 % (27.0-41.0); MEAN CORPUSCULAR HGB 26.7 pg (27.0-31.0); MEAN CORPUSCULAR HGB CONC 32.1 g/dl (33.0-37.0); MEAN PLATELET VOLUME 10.7 fl (9.6-12.3); MONO # 0.9 10*3/uL (0.1-1.0); MONO % 7.5 % (3.0-9.0); NEUT # 8.8 10*3/uL (2.3-7.9); NEUT % 75.9 % (47.0-73.0); PLATELET COUNT AUTOMATED 326 10*3/uL (130-400); RED BLOOD COUNT 5.25 10*6/uL (4.10-5.10); RED CELL DISTRI WIDTH 15.9 % (0-14.5); WHITE BLOOD COUNT 11.5 10*3/uL (4.8-10.8)
[2019-06-03 22:00] LABS: ALBUMIN 3.6 gm/dl (3.1-4.5); ALKALINE PHOSPHATASE 65 U/L (45-117); BUN 17 mg/dl (7-24); CHLORIDE 103 mmol/L (98-107); CREATININE 1.29 mg/dL (0.55-1.02); LIPASE 181 U/L (73-393); POTASSIUM 3.2 mmol/L (3.5-5.1); SGOT/AST 23 IU/L (3-35); SGPT/ALT 23 U/L (12-78); SODIUM 139 mmol/L (136-145); TOTAL PROTEIN 8.2 gm/dL (6.4-8.2)
[2019-06-03 22:03] LABS: INTERNATIONAL NORM RATIO 1.1 (2.0-3.5); TROPONIN I < 0.015 ng/ml (<0.045)
[2019-06-03 22:51] VITALS: BP 128/75
[2019-06-04 00:43] VITALS: BP 139/87
[2019-06-04 01:19] VITALS: BP 137/69
[2019-06-04 06:55] LABS: BUN 17 mg/dl (7-24); CHLORIDE 110 mmol/L (98-107); CREATININE 1.04 mg/dL (0.55-1.02); PHOSPHOROUS 3.5 mg/dL (2.5-4.9); POTASSIUM 3.7 mmol/L (3.5-5.1); SODIUM 144 mmol/L (136-145)
[2019-06-04 07:16] LABS: BASO % 0.5 % (0.0-1.0); EOS # 0.1 10*3/uL (0.0-0.4); EOS % 1.8 % (1.0-4.0); HEMOGLOBIN 11.6 g/dl (12.0-16.0); LYMPH # 2.2 10*3/uL (1.3-4.4); LYMPH % 28.4 % (27.0-41.0); MEAN CELL VOLUME 85.4 fl (81.0-99.0); MEAN CORPUSCULAR HGB 26.1 pg (27.0-31.0); MEAN CORPUSCULAR HGB CONC 30.5 g/dl (33.0-37.0); MEAN PLATELET VOLUME 11.5 fl (9.6-12.3); MONO # 0.8 10*3/uL (0.1-1.0); MONO % 10.4 % (3.0-9.0); NEUT # 4.5 10*3/uL (2.3-7.9); NEUT % 58.5 % (47.0-73.0); PLATELET COUNT AUTOMATED 277 10*3/uL (130-400); RED BLOOD COUNT 4.45 10*6/uL (4.10-5.10); WHITE BLOOD COUNT 7.7 10*3/uL (4.8-10.8)
[2019-06-04 07:41] LABS: BILIRUBIN NEGATIVE (NEGATIVE); BLOOD NEGATIVE (NEGATIVE); CLARITY SL CLOUDY (CLEAR); COLOR YELLOW (YELLOW); GLUCOSE NEGATIVE (NEGATIVE); KETONE NEGATIVE (NEGATIVE); LEUKO ESTERASE NEGATIVE (NEGATIVE); NITRITE NEGATIVE (NEGATIVE); PH 5.5 (5.0-9.0); SPECIFIC GRAVITY >= 1.030 (1.005-1.030); UROBILINOGEN 0.2 E.U./dl (0.2-1.0)
[2019-06-04 07:53] LABS: BACTERIA TRACE; EPITHELIAL CELLS 16-20; MUCOUS 1+
[2019-06-04 12:00] VITALS: BP 111/61
[2019-06-04 16:00] VITALS: BP 149/69
[2019-06-04 20:00] VITALS: BP 119/57
[2019-06-05] VITALS: BP 123/75
[2019-06-05 06:54] LABS: BASO % 0.4 % (0.0-1.0); EOS # 0.1 10*3/uL (0.0-0.4); EOS % 1.4 % (1.0-4.0); HEMATOCRIT 38.3 % (37.0-47.0); HEMOGLOBIN 11.9 g/dl (12.0-16.0); LYMPH # 1.8 10*3/uL (1.3-4.4); LYMPH % 25.8 % (27.0-41.0); MEAN CELL VOLUME 85.7 fl (81.0-99.0); MEAN CORPUSCULAR HGB 26.6 pg (27.0-31.0); MEAN CORPUSCULAR HGB CONC 31.1 g/dl (33.0-37.0); MEAN PLATELET VOLUME 10.6 fl (9.6-12.3); MONO # 0.7 10*3/uL (0.1-1.0); MONO % 9.5 % (3.0-9.0); NEUT # 4.3 10*3/uL (2.3-7.9); NEUT % 62.5 % (47.0-73.0); PLATELET COUNT AUTOMATED 269 10*3/uL (130-400); RED BLOOD COUNT 4.47 10*6/uL (4.10-5.10); RED CELL DISTRI WIDTH 15.9 % (0-14.5)
[2019-06-05 07:23] LABS: BUN 11 mg/dl (7-24); CHLORIDE 108 mmol/L (98-107); CREATININE 0.92 mg/dL (0.55-1.02); POTASSIUM 3.5 mmol/L (3.5-5.1); SODIUM 142 mmol/L (136-145)
[2019-06-05 08:00] VITALS: BP 108/73
[2019-06-05 12:00] VITALS: BP 126/53
[2019-06-05 16:00] VITALS: BP 131/81
[2019-06-05 18:30] VITALS: BP 121/45
[2019-06-05 20:00] VITALS: BP 134/67
[2019-06-06] VITALS: BP 102/57; BP 133/76
[2019-06-06 06:42] LABS: BASO % 0.3 % (0.0-1.0); EOS # 0.1 10*3/uL (0.0-0.4); EOS % 1.9 % (1.0-4.0); HEMATOCRIT 36.3 % (37.0-47.0); HEMOGLOBIN 11.2 g/dl (12.0-16.0); LYMPH # 1.6 10*3/uL (1.3-4.4); LYMPH % 25.4 % (27.0-41.0); MEAN CELL VOLUME 84.6 fl (81.0-99.0); MEAN CORPUSCULAR HGB 26.1 pg (27.0-31.0); MEAN CORPUSCULAR HGB CONC 30.9 g/dl (33.0-37.0); MEAN PLATELET VOLUME 11.2 fl (9.6-12.3); MONO # 0.7 10*3/uL (0.1-1.0); NEUT # 3.9 10*3/uL (2.3-7.9); NEUT % 61.2 % (47.0-73.0); PLATELET COUNT AUTOMATED 272 10*3/uL (130-400); RED BLOOD COUNT 4.29 10*6/uL (4.10-5.10); RED CELL DISTRI WIDTH 15.7 % (0-14.5); WHITE BLOOD COUNT 6.4 10*3/uL (4.8-10.8)
[2019-06-06 06:43] LABS: ALBUMIN 2.9 gm/dl (3.1-4.5); ALKALINE PHOSPHATASE 53 U/L (45-117); BUN 11 mg/dl (7-24); CHLORIDE 106 mmol/L (98-107); CREATININE 1.01 mg/dL (0.55-1.02); POTASSIUM 3.3 mmol/L (3.5-5.1); SGOT/AST 11 IU/L (3-35); SGPT/ALT 18 U/L (12-78); SODIUM 141 mmol/L (136-145); TOTAL PROTEIN 6.5 gm/dL (6.4-8.2)
[2019-06-06 08:00] VITALS: BP 138/84
[2019-06-06 12:00] VITALS: BP 113/65
[2019-06-06 16:00] VITALS: BP 114/67
[2019-06-06 20:00] VITALS: BP 112/68
[2019-06-07] VITALS: BP 128/67
[2019-06-07 04:00] VITALS: BP 157/75
[2019-06-07 06:46] LABS: BUN 9 mg/dl (7-24); CHLORIDE 106 mmol/L (98-107); CREATININE 0.88 mg/dL (0.55-1.02); POTASSIUM 3.3 mmol/L (3.5-5.1); SODIUM 141 mmol/L (136-145)
[2019-06-07 08:00] VITALS: BP 104/66; BP 97/77
[2019-06-07 12:00] VITALS: BP 127/54
[2019-06-07 16:00] VITALS: BP 128/58
[2019-06-07 20:00] VITALS: BP 140/77
== END 2019-06-07 23:04 | disposition short-term general hospital (02) | DRG 388 ==
LOC: ED 20:52 → 5E 06-04 00:17 → EDHOLD 06-04 00:17 → 5E 06-04 00:39
PROVIDERS: Emergency Medicine Emergency Medical Services; Family Medicine; Student in an Organized Health Care Education/Training Program; ADMIT Internal Medicine
DX: K56.600 Partial intestinal obstruction, unspecified as to cause (principal); N17.0 Acute kidney failure with tubular necrosis; C18.9 Malignant neoplasm of colon, unspecified; R18.0 Malignant ascites; F33.1 Major depressive disorder, recurrent, moderate; C78.6 Secondary malignant neoplasm of retroperitoneum and peritoneum; E86.0 Dehydration; K76.0 Fatty (change of) liver, not elsewhere classified; E66.9 Obesity, unspecified; K57.30 Diverticulosis of large intestine without perforation or abscess without bleeding; J44.9 Chronic obstructive pulmonary disease, unspecified; D72.829 Elevated white blood cell count, unspecified; D72.810 Lymphocytopenia; E87.6 Hypokalemia; R73.9 Hyperglycemia, unspecified; E55.9 Vitamin D deficiency, unspecified; E53.8 Deficiency of other specified B group vitamins; E78.2 Mixed hyperlipidemia; F12.10 Cannabis abuse, uncomplicated; I10 Essential (primary) hypertension; Z92.3 Personal history of irradiation; Z90.710 Acquired absence of both cervix and uterus; Z87.891 Personal history of nicotine dependence; Z82.5 Family history of asthma and other chronic lower respiratory diseases; Z84.89 Family history of other specified conditions; Z88.2 Allergy status to sulfonamides; Z88.8 Allergy status to other drugs, medicaments and biological substances; Z88.1 Allergy status to other antibiotic agents; Z91.040 Latex allergy status; Z79.899 Other long term (current) drug therapy; Z80.9 Family history of malignant neoplasm, unspecified; Z90.49 Acquired absence of other specified parts of digestive tract; Z93.2 Ileostomy status; Z68.32 Body mass index [BMI] 32.0-32.9, adult